=== PATIENT | female | born 1995 | race Caucasian/White ===

== ENCOUNTER 2016-10-23 17:41 | Emergency (ER) | payer BC ==
[2016-10-23 18:02] VITALS: BP 140/86; PULSE 116; TEMP 100.9; BMI 30.4
[2016-10-23] MEDS ORDERED: IBUPROFEN 400 MG TABLET (FP) PO ONE ×2 (18:39→18:51)
--- NOTE | 2016-10-23 18:45 | PDOC ---
[id number] 4d SORE THROAT Time Seen by Provider: 10/23/16 18:26 History Source: Patient Exam Limitations: No Limitations - History of Present Illness Initial Comments: 10/23/16 18:42 c/o sore throat for 3 days getting worse, with fever. no cough. Past History - Past Medical History Allergies/Adverse Reactions: Allergies Allergy/AdvReac Type Severity Reaction Status Date / Time POLLEN Allergy Intermediate SNEEZING Uncoded 10/23/16 17:58 Home Medications: Ambulatory Orders Amoxicillin - [Amoxicillin 500mg Capsule -] 1,000 mg PO DAILY #20 capsule Psychiatric Problems: Yes (SUICIDE IDEATION in the past was admitted to psych ) - Psycho/Social/Smoking Cessation Hx Suicidal Ideation: Yes ("A COUPLE OF YEARS AGO") Smoking Status: No Smoking History: Never smoked Number of Cigarettes Smoked Daily: 0 Hx Alcohol Use: No Drug/Substance Use Hx: No Review of Systems - Review of Systems Able to Perform ROS?: Yes Is the patient limited Welsh proficient: No Constitutional: No: Symptoms Reported HEENTM: Yes: See HPI Psychiatric: No: Anxiety, Depression, Frequent Crying, Stressors, Sleep Pattern Change, Emotional Problems (pt denies any current thoughts or ideations suicidal or homicidal ), Mood Swings, Change in Appetite, Other *Physical Exam - Vital Signs Last Vital Signs Temp Pulse Resp BP Pulse Ox 100.9 F H 116 H 19 140/86 98 10/23/16 17:58 10/23/16 17:58 10/23/16 17:58 10/23/16 17:58 10/23/16 17:58 - Physical Exam General Appearance: Yes: Nourished, Appropriately Dressed HEENT: positive: EOMI, CRYSTAL, TMs Normal, Muffled/Hoarse voice, Pharyngeal Erythema, Tonsillar Erythema Neck: positive: Supple, Lymphadenopathy (R) Respiratory/Chest: positive: Lungs Clear, Normal Breath Sounds Cardiovascular: positive: Regular Rhythm, Regular Rate Gastrointestinal/Abdominal: positive: Normal Bowel Sounds, Soft Musculoskeletal: positive: Normal Inspection Extremity: positive: Normal Inspection, Normal Range of Motion Integumentary: positive: Normal Color, Dry, Warm Neurologic: positive: Fully Oriented, Alert, Normal Mood/Affect, Normal Response , Motor Strength 5/5 Medical Decision Making - Medical Decision Making 10/23/16 18:43 cc: sore throat fever pt able to speak with slightly muffled voice, no 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 Pt states she has no thoughts of suicide, depression or homicide at this present time. 10/23/16 18:47 *DC/Admit/Observation/Transfer Diagnosis at time of Disposition: Pharyngitis Qualifiers: Pharyngitis/tonsillitis etiology: unspecified etiology Qualified Code(s): J02.9 - Acute pharyngitis, unspecified - Discharge Dispostion Disposition: HOME Condition at time of disposition: Good - Prescriptions Prescriptions: Amoxicillin - [Amoxicillin 500mg Capsule -] 1,000 mg PO DAILY #20 capsule - Referrals Referrals: Adolfo Grady MD [Staff Physician] - - Patient Instructions Additional Instructions: gargle with warm salt water 4-5 times a day soft foods, ice pops, jello take the Amoxicillin as directed for 10 days take motrin 600mg every 6hrs for pain as needed follow with ENT if symptoms worsen or persist
== END 2016-10-23 19:54 | disposition home or self-care (01) ==
LOC: JERFT 17:41
DX: J02.9 Acute pharyngitis, unspecified (principal)
CPT/HCPCS: 87070; 87430; 99281-25